=== PATIENT | female | born 1960 | race Asian ===

== ENCOUNTER 2022-10-23 15:29 | Emergency (ER) | payer OTHER ==
[~2022-10-23] VITALS: Ht 162.6 cm; Wt 54.9 kg
[2022-10-23 15:29] VITALS: BP 153/72; TEMP 98.4
[2022-10-23 16:01] LABS: PLATELET COUNT 183 K/uL (152-353)
[2022-10-23] MEDS ORDERED: DONEPEZIL HYDRO10 MG PO (18:42)
[2022-10-23] MEDS ORDERED: MEMA5TAB2 PO (18:42)
[2022-10-23] MEDS ORDERED: MIRTAZAPINE PO (18:43)
[2022-10-23] MEDS ORDERED: OXYB5TAB56 PO (18:44)
[2022-10-23] MEDS ORDERED: QUET25TA2 PO (18:45)
[2022-10-23] MEDS ORDERED: ACET-206 PO (18:46)
[2022-10-23] MEDS ORDERED: DOCUSATE SODIUM1 TA1 PO (18:47)
[2022-10-23] MEDS ORDERED: LORA0.5T17 PO (18:48)
== END 2022-10-23 16:51 | disposition other institution (70) ==
LOC: ED 15:29
PROVIDERS: Family Medicine
DX: F03.918 Unspecified dementia, unspecified severity, with other behavioral disturbance (principal); Z91.83 Wandering in diseases classified elsewhere; Y09 Assault by unspecified means; Z11.52 Encounter for screening for COVID-19; Z04.6 Encounter for general psychiatric examination, requested by authority
CPT/HCPCS: 80053; 81002; 85027; 87635; 93005; 99283; U0003